=== PATIENT | female | born 1950 | race Caucasian/White ===

== ENCOUNTER → 2017-05-12 | Outpatient (CLI) | payer BC ==
[~2017-05-12] MED LIST: CHOL20009; CRAN1CAP15
--- NOTE | 2017-05-13 07:35 | MAMMOGRAPHY REPORT ---
BILATERAL DIGITAL SCREENING MAMMOGRAM WITH CAD: 05/12/2017 CLINICAL HISTORY: Routine screening. Patient has no complaints. TECHNIQUE: Bilateral CC and MLO views were obtained. Current study was also evaluated with a Compute r Aided Detection (CAD) system. COMPARISON: Comparison is made to exams dated: 05/05/2015 mammogram, 05/25/2014 ultrasound, 4 mammogram, 05/04/2014 mammogram, 05/03/2013 mammogram, and 04/30/2012 mammogram - [facility]. BREAST COMPOSITION: The tissue of both breasts is heterogeneously dense, which may obscure small mas ses. FINDINGS: The breast parenchyma pattern is similar to prior mammograms. No suspicious mass, architec tural distortion or cluster of microcalcifications is seen. IMPRESSION: ACR BI-RADS CATEGORY 1: NEGATIVE There is no mammographic evidence of malignancy. A 1 year screening mammogram is recommended. The pa tient will receive written notification of the results. Approximately 10% of breast cancers are not detected with mammography. A negative mammographic report should not delay biopsy if a clinically suggestive mass is present. Jenny Smith M.D. ay/:05/12/2017 14:19:19 Blocking Machine Operator Second: Nubia SIGALA(Jin)(Amy), [facility] letter sent: Normal 1/2 BI-RADS Code: ACR BI-RADS Category 1: Negative
== END | disposition home or self-care (01) ==
LOC: C.MAMM 10:58
PROVIDERS: ATTEND Family Medicine
DX: Z12.31 Encounter for screening mammogram for malignant neoplasm of breast (principal)

== ENCOUNTER → 2018-03-12 | Day surgery (SDC) | payer BC ==
[~2018-03-12] VITALS: Ht 162.6 cm; Wt 57.0 kg
[~2018-03-12] MED LIST changes: +ACETAMINOPHEN 500 MG TAB ONE; +ZOLEDRONIC ACID INJ 5 MG in EMPTY BAG 0 ML IV ONE
[2018-03-12 12:02] VITALS: BP 151/78; PULSE 74; TEMP 36.7; O2SAT 96; Ht 162.6 cm; Wt 57.0 kg
== END | disposition home or self-care (01) ==
LOC: C.MTU 11:31
PROVIDERS: ATTEND Family Medicine
DX: M81.0 Age-related osteoporosis without current pathological fracture (principal)